=== PATIENT | female | born 1955 | race Caucasian/White ===

== ENCOUNTER → 2018-07-09 | Outpatient (CLI) | payer BC, OTHER ==
[2016-02-01 14:15] VITALS: BP 155/81
[~2018-07-09] MED LIST: ATOR10TA60 PO; BRIN10DR RIGHTEYE; CA C1TAB38 PO; CHOL10003 PO; LATA2.5D3 OU; LISI-338 PO; MAGN400C PO; METF500T16 PO
--- NOTE | 2018-07-10 09:05 | CARD ---
MR#: [id number] Date of Study: 07/09/2018 Ordering Physician: WILD BLACKBURN, Referring Physician: WILD BLACKBURN, Tech: Kateryna Cook APPROVED REPORT EXAM: Two-dimensional and M-mode echocardiogram with Doppler and color Doppler. Other Information Quality : Good INDICATION Hypertension/HCVD RISK FACTORS Hypertension Hyperlipidemia Diabetes 2D DIMENSIONS RVDd3.1 (2.9-3.5cm)Left Atrium(2D)3.5 (1.6-4.0cm) IVSd1.0 (0.7-1.1cm)Aortic Root(2D)3.0 (2.0-3.7cm) LVDd4.6 (3.9-5.9cm)LVOT Diameter2.3 (1.8-2.4cm) PWd1.2 (0.7-1.1cm)LVDs3.3 (2.5-4.0cm) FS (%) 29.1 %SV55.6 ml LVEF(%)55.9 (>50%) Aortic Valve AoV Peak Braydon.124.2cm/sAoV VTI25.1cm AO Peak GR.6.2mmHgLVOT Peak Braydon.102.5cm/s LVOT VTI 22.68cmAO Mean GR.3mmHg KEIRA (VMAX)2.12jj5CDA (VTI)3.70cm2 Mitral Valve MV E Kaefwvuh91.3cm/sMV DECEL [id number] MV A Swyxggnv06.9cm/sMV [id number] E/A Ratio0.8MVA (PHT)3.41cm2 TDI E/Lateral E'8.4E/Medial E'10.4 Pulmonary Valve PV Peak Ytucqhrh19.1cm/sPV Peak Grad.4mmHg Tricuspid Valve RAP [id number] Pulmonary Vein S1 Sxeizlli79.9cm/sD2 Vpuyjryh02.1cm/s PVa [id number] LEFT VENTRICLE The left ventricle is normal size. There is mild concentric left ventricular hypertrophy. The left ve ntricular systolic function is normal and the ejection fraction is within normal range. The Ejection Fraction is 50-55%. There is normal LV segmental wall motion. Transmitral Doppler flow pattern is Gra de I-abnormal relaxation pattern. RIGHT VENTRICLE The right ventricle is borderline dilated. There is normal right ventricular wall thickness. The righ t ventricular systolic function is normal. ATRIA The left atrium size is normal. The right atrium size is normal. The interatrial septum is intact wit h no evidence for an atrial septal defect or patent foramen ovale as noted on 2-D or Doppler imaging. AORTIC VALVE The aortic valve is normal in structure and function. Doppler and Color Flow revealed no significant aortic regurgitation. Calculated aortic valve area is 3.7 cm2 with maximum pressure gradient of 6.2 m mHg and mean pressure gradient of 4 mmHg. MITRAL VALVE The mitral valve is normal in structure and function. There is no evidence of mitral valve prolapse. There is no mitral valve stenosis. Doppler and Color-flow revealed trace mitral regurgitation. TRICUSPID VALVE The tricuspid valve is normal in structure and function. Doppler and Color Flow revealed no tricuspid valve regurgitation noted. There is no tricuspid valve stenosis. PULMONIC VALVE The pulmonic valve is not well visualized. Doppler and Color Flow revealed no pulmonic valvular regur gitation. There is no pulmonic valvular stenosis. GREAT VESSELS The aortic root is normal in size. The IVC is normal in size and collapses >50% with inspiration. PERICARDIAL EFFUSION There is no evidence of significant pericardial effusion. Critical Notification Critical Value: No <Conclusion> The left ventricular systolic function is normal and the ejection fraction is within normal range. Th e Ejection Fraction is 50-55%. There is normal LV segmental wall motion. Signed by : Fred Serrano, Electronically Approved : 07/10/2018 09:04:01
== END | disposition home or self-care (01) ==
LOC: ECHO 09:47
PROVIDERS: ATTEND Internal Medicine Cardiovascular Disease
DX: I11.9 Hypertensive heart disease without heart failure (principal); E78.5 Hyperlipidemia, unspecified; E11.9 Type 2 diabetes mellitus without complications
CPT/HCPCS: 93306